=== PATIENT | female | born 2000 | race Caucasian/White ===

== ENCOUNTER 2025-01-07 21:03 | Observation (INO) ==
--- NOTE | 2025-01-07 23:43 | Emergency Department Note ---
Impression & Plan Seizure, Elevated serum glucose ED Provider Note NAME: YANCY SIN AGE: 24 SEX: F : 2000 ARRIVES VIA: Ambulance INFORMANT: Patient ED PROVIDER(S): Sreekanth Berumen DO CHIEF COMPLAINT: Seizure HPI: Patient is a 24-year-old female who presents ER for an episode where she became unresponsive and she had diffuse body shaking for about 20 minutes. She did lose control of her bowel or bladder. She does not remember what happened. She was not awake when this occurred. She currently feels very groggy. Denies any headache or change in vision. No chest pain or shortness of breath. No belly pain. She notes she is in the process of getting worked up for seizures. She does take Lamictal but is unsure of how much she takes. She currently over [facility]. ADDITIONAL HISTORY OBTAINED: Per HPI Chronic Medical/Social Conditions Affecting Care: Per HPI PAST MEDICAL HISTORY:See Below PAST SURGICAL HISTORY:See Below FAMILY HISTORY:See Below SOCIAL HISTORY:See Below HOME MEDICATIONS:See Below ALLERGIES:See Below VITALS:See Below PHYSICAL EXAMINATION: GENERAL: Sitting up in bed, alert, well appearing, well nourished, no distress, non-toxic EYE EXAM: normal conjunctiva. PERRL and EOM's intact. OROPHARYNX: no exudate, no erythema, lips, buccal mucosa, and tongue normal and mucous membranes are moist NECK: supple, no nuchal rigidity, no adenopathy, non-tender LUNGS: Clear to auscultation. Normal chest wall mechanics HEART: no murmurs, S1 normal and S2 normal ABDOMEN: abdomen soft, non-tender, normo-active bowel sounds, no masses, no rebound or guarding. BACK: Back is symmetrical on inspection and there is no deformity, no midline tenderness, no CVA tenderness. SKIN: no rashes and no bruising UPPER EXTREMITIES: upper extremities are grossly normal. LOWER EXTREMITIES: No pitting edema. NEURO EXAM: Normal sensorium, cranial nerves II-XII intact, normal speech, no weakness of arms, no weakness of legs. No drift. Finger to nose intact. Gross sensation intact. MEDICAL DECISION MAKING: Patient is a 24-year-old female who presents ER for the below stated complaint. IV was established and blood work was obtained. Labs show no significant leukocytosis or anemia. BMP along with LFTs bilirubin and troponin was negative. Lipase was normal. CT of the head was negative. Chest x-ray was without acute infiltrate. Patient was very groggy but she was given Ativan prior to arrival. It is difficult ascertain whether she truly has a history of epilepsy versus pseudoseizures. She is on Lamictal. Patient is unclear whether she has a true seizure disorder. She is currently at the [facility] on a 201. With her being at the [facility] Case was discussed with the hospitalist for further observation due to the 20-minute episodes/possible seizure. Consults/Care Managements Discussions: Per [facility] Triage Nursing notes reviewed. Limited review of prior medical records performed Vital Signs: reviewed and remarkable for no significant abnormalities Differential diagnosis: Differential diagnosis includes etiologies such as infection, hypoglycemia, electrolyte abnormalities, cardiac sources, intracerebral event, trauma, toxicologic, neurologic, as well as others were entertained. ER treatment provided: See below Diagnostics interpreted by me include EKG and cardiac monitoring as listed below: -Cardiac Monitoring: An order was placed for continuous cardiac monitoring. The monitor shows a rate of 90 with sinus rhythm. -ECG: Sinus rhythm rate 95 Normal axis No PVCs QTc 427 -Laboratory studies:Interpreted by me as stated above in MDM and shown below. Imaging studies: Xrays: As interpreted by me: Portable AP upright 1 view of the chest shows no focal infiltrate CTs show: none Procedures:none Critical Care: None Past Med/Surg History Problem List (Updated 01/08/25 @ 01:19 by Sreekanth Berumen DO) Elevated serum glucose (Acute) Seizure (Acute) Chest pain (Acute) Social History Smoking Status: Never smoker Preferred Language: Cambodian Feels Safe at Home: Yes Results & Data (ED) Vital Signs Vital Signs - 24 hr 01/07/25 21:12 01/07/25 21:12 01/07/25 21:12 Temperature 37.0 C Temperature Source Oral Pulse Rate 91 H Pulse Rate [Apical] Pulse Rate from SpO2 Sensor Pulse Rhythm Regular Pulse Rhythm [Apical] Pulse Strength Normal Pulse Strength [Apical] Respiratory Rate 19 19 Respiratory Effort / Characteristics Non-Labored Spontaneous Non-Labored Spontaneous Respiratory Depth Normal Normal Respiratory Pattern Regular Regular Blood Pressure 136/84 Blood Pressure [Left Arm] Blood Pressure Mean 101 Blood Pressure Mean [Left Arm] Blood Pressure Position Sitting Blood Pressure Position [Left Arm] Pulse Oximetry 96 96 Oxygen Delivery Method Room Air Room Air Sepsis Recent Fever Within 48 Hours No Sepsis New/Unexplained Change in Mental Status No Sepsis Action Taken by Nursing No Action Required 01/07/25 21:26 01/07/25 23:00 01/07/25 23:00 Temperature Temperature Source Pulse Rate 92 H 97 H Pulse Rate [Apical] 90 Pulse Rate from SpO2 Sensor 98 H Pulse Rhythm Pulse Rhythm [Apical] Regular Pulse Strength Pulse Strength [Apical] Normal Respiratory Rate 16 28 H Respiratory Effort / Characteristics Non-Labored Spontaneous Respiratory Depth Normal Respiratory Pattern Regular Blood Pressure Blood Pressure [Left Arm] 112/73 Blood Pressure Mean Blood Pressure Mean [Left Arm] 86 Blood Pressure Position Blood Pressure Position [Left Arm] Sitting Pulse Oximetry 95 95 Oxygen Delivery Method Room Air Room Air Sepsis Recent Fever Within 48 Hours Sepsis New/Unexplained Change in Mental Status Sepsis Action Taken by Nursing 01/07/25 23:05 01/08/25 00:06 01/08/25 00:20 Temperature Temperature Source Pulse Rate 97 H 90 Pulse Rate [Apical] Pulse Rate from SpO2 Sensor 90 Pulse Rhythm Regular Pulse Rhythm [Apical] Pulse Strength Pulse Strength [Apical] Respiratory Rate 16 24 Respiratory Effort / Characteristics Respiratory Depth Respiratory Pattern Blood Pressure 139/92 Blood Pressure [Left Arm] Blood Pressure Mean 119 Blood Pressure Mean [Left Arm] Blood Pressure Position Blood Pressure Position [Left Arm] Pulse Oximetry 94 96 Oxygen Delivery Method Room Air Room Air Sepsis Recent Fever Within 48 Hours Sepsis New/Unexplained Change in Mental Status Sepsis Action Taken by Nursing 01/08/25 00:21 Temperature Temperature Source Pulse Rate 79 Pulse Rate [Apical] Pulse Rate from SpO2 Sensor 81 Pulse Rhythm Pulse Rhythm [Apical] Pulse Strength Pulse Strength [Apical] Respiratory Rate 21 Respiratory Effort / Characteristics Respiratory Depth Respiratory Pattern Blood Pressure Blood Pressure [Left Arm] Blood Pressure Mean Blood Pressure Mean [Left Arm] Blood Pressure Position Blood Pressure Position [Left Arm] Pulse Oximetry 97 Oxygen Delivery Method Room Air Sepsis Recent Fever Within 48 Hours Sepsis New/Unexplained Change in Mental Status Sepsis Action Taken by Nursing Laboratory Data 01/07/25 21:15 01/07/25 21:15 Lab Results 01/07/25 Range/Units 21:15 WBC 10.24 (4.8-10.8) K/ul RBC 4.89 (4.20-5.40) M/uL Hgb 12.5 (12.0-16.0) g/dl Hct 38.6 (37.0-47.0) % MCV 78.9 L (80.0-100.0) fL MCH 25.6 (25.0-34.0) pg MCHC 32.4 (32.0-36.0) g/dL RDW Std Deviation 42.5 (36.4-46.3) fL RDW Coeff of Carmen 15.0 H (11.5-14.5) % Plt Count 318 (130-400) K/uL MPV 11.3 (9.4-12.4) fL Immature Gran % (Auto) 0.3 % Neut % (Auto) 66.0 % Lymph % (Auto) 25.9 % Humphreys % (Auto) 5.6 % Eos % (Auto) 1.8 % Baso % (Auto) 0.4 % Neut # (Auto) 6.77 H (1.40-6.50) K/uL Lymph # (Auto) 2.65 (1.20-3.40) K/uL Humphreys # (Auto) 0.57 (0.11-0.59) K/uL Eos # (Auto) 0.18 (0.00-0.50) K/uL Baso # (Auto) 0.04 (0.00-0.20) K/uL Immature Gran # (Auto) 0.03 (0.01-0.20) K/uL Sodium 138 (136-145) mmol/L Potassium 4.1 (3.5-5.1) mmol/L Chloride 106 (98-107) mmol/L Carbon Dioxide 23 (21-32) mmol/L Anion Gap 9 (3-11) BUN 19 (6-23) mg/dl Creatinine 1.04 (0.6-1.2) mg/dl Est Cr Clr Drug Dosing 97.1 ml/min eGFR 77.45 BUN/Creatinine Ratio 18.3 (10-20) Glucose 121 H (70-99(Fasting)) mg/dl Calcium 9.6 (8.6-10.3) mg/dl Total Bilirubin 0.2 (0.2-1.0) mg/dl AST 21 (13-39) U/L ALT 29 (7-52) U/L Alkaline Phosphatase 73 (34-104) U/L Troponin I High Sens < 2.3 (0-14) pg/ml Total Protein 7.7 (6.0-8.3) gm/dl Albumin 4.5 (3.4-5.0) gm/dl Globulin 3.2 (2.5-4.0) gm/dl Albumin/Globulin Ratio 1.4 (0.9-2) Lipase 27 (11-82) U/L Administered Medications Discontinued Medications Sodium Chloride (Nss) 1,000 mls @ 999 mls/hr IV .Q1H1M ONE Stop: 01/08/25 00:39 Last Admin: 01/08/25 00:37 Dose: 999 mls/hr Documented By: JASPER Imaging Data Radiologist's Impression: Head CT 01/07/25 23:39 EXAM: CT head/brain wo con CLINICAL HISTORY: seizure TECHNIQUE: Multiple axial images are obtained from the skull base to the vertex without contrast. CT scan was performed according to ALARA (as low as reasonable achievable). COMPARISON: None. FINDINGS: The brain shows normal morphology, attenuation, and volume for age. No evidence of space occupying lesion, hemorrhage, edema, mass effect, midline shift, extra axial collection, or hydrocephalus is noted. Ventricles, sulci, and basal cisterns are symmetric and normal in size and configuration. The artis-white matter differentiation is preserved. Visualized paranasal sinuses and mastoid air cells are well aerated. Orbital contents are within normal limits. Bony structures are intact. IMPRESSION: 1. No evidence of acute intracranial abnormality is demonstrated Electronically signed by Kaushal Leary 01-08-2025 12:54 AM Discharge Plan Visit Data Chief Complaint: Seizure ED Provider: Sreekanth Berumen Discharge Problem: Seizure, Elevated serum glucose Forms Stand Alone Forms: My [facility] Referrals Referrals: [facility] [Primary Care Provider] -
[2025-01-08 00:21] LABS: Basophils # (auto) 0.04 K/uL (0.00-0.20); Basophils % (auto) 0.4 %; Eosinophils # (auto) 0.18 K/uL (0.00-0.50); Eosinophils % (auto) 1.8 %; Hematocrit (blood only) 38.6 % (37.0-47.0); Hemoglobin 12.5 g/dl (12.0-16.0); Immature Granulocytes # (auto) 0.03 K/uL (0.01-0.20); Immature Granulocytes % (auto) 0.3 %; Lymphocytes # (auto) 2.65 K/uL (1.20-3.40); Lymphocytes % (auto) 25.9 %; Mean Corpuscular Hemoglobin 25.6 pg (25.0-34.0); Mean Corpuscular Hgb Conc 32.4 g/dL (32.0-36.0); Mean Corpuscular Volume 78.9 fL (80.0-100.0); Mean Platelet Volume 11.3 fL (9.4-12.4); Monocytes # (auto) 0.57 K/uL (0.11-0.59); Monocytes % (auto) 5.6 %; Neutrophils # (auto) 6.77 K/uL (1.40-6.50); Platelet Count 318 K/uL (130-400); RDW Standard Deviation 42.5 fL (36.4-46.3); Red Blood Count 4.89 M/uL (4.20-5.40); White Blood Count 10.24 K/ul (4.8-10.8)
[2025-01-08 00:32] LABS: Alanine Aminotransferase 29 U/L (7-52); Albumin Globulin Ratio 1.4 (0.9-2); Albumin Level 4.5 gm/dl (3.4-5.0); Alkaline Phosphatase 73 U/L (34-104); Anion Gap 9 (3-11); Aspartate Aminotransferase 21 U/L (13-39); BUN Creatinine Ratio 18.3 (10-20); Bilirubin,Total 0.2 mg/dl (0.2-1.0); Blood Urea Nitrogen 19 mg/dl (6-23); Calcium 9.6 mg/dl (8.6-10.3); Carbon Dioxide 23 mmol/L (21-32); Chloride 106 mmol/L (98-107); Creatinine Clr Calc Pharmacy 97.1 ml/min; Globulin 3.2 gm/dl (2.5-4.0); Glucose 121 mg/dl (70-99(Fasting)); Lipase 27 U/L (11-82); Potassium 4.1 mmol/L (3.5-5.1); Sodium 138 mmol/L (136-145); Total Protein 7.7 gm/dl (6.0-8.3)
[2025-01-08] MEDS: SODIUM CHLORIDE 0.9% 1,000 ML IV ONE (00:37)
[2025-01-08 00:38] LABS: Troponin I High Sensitivity < 2.3 pg/ml (0-14)
--- NOTE | 2025-01-08 00:55 | CT Scan Report ---
EXAM: CT head/brain wo con CLINICAL HISTORY: seizure TECHNIQUE: Multiple axial images are obtained from the skull base to the vertex without contrast. CT scan was performed according to ALARA (as low as reasonable achievable). COMPARISON: None. FINDINGS: The brain shows normal morphology, attenuation, and volume for age. No evidence of space occupying lesion, hemorrhage, edema, mass effect, midline shift, extra axial collection, or hydrocephalus is noted. Ventricles, sulci, and basal cisterns are symmetric and normal in size and configuration. The artis-white matter differentiation is preserved. Visualized paranasal sinuses and mastoid air cells are well aerated. Orbital contents are within normal limits. Bony structures are intact. IMPRESSION: 1. No evidence of acute intracranial abnormality is demonstrated Electronically signed by Kaushal Leary 01-08-2025 12:54 AM
--- NOTE | 2025-01-08 01:35 | XRay Report ---
Exam(s): XR CXR 1 VIEW EXAM: XR Chest, 1 View CLINICAL HISTORY: Reason for exam: Chest pain, nonspecific. TECHNIQUE: Frontal view of the chest. COMPARISON: Prior chest x-ray from January 06, 2025. FINDINGS: Lungs: Mild to moderate pleural thickening of the central rhonchi with increased interstitial opacities in the lower lobes. No consolidation. Pleural space: Unremarkable. No pneumothorax. Heart: Unremarkable. No cardiomegaly. Mediastinum: Unremarkable. Normal mediastinal contour. Bones/joints: Unremarkable. No acute fracture. IMPRESSION: Bronchitis, which may be of infectious or inflammatory etiologies. No consolidation or pleural effusion. Electronically signed by: Jil Gonsales MD 01/08/25 01:34 AM
--- NOTE | 2025-01-08 05:15 | History & Physical Report ---
Date of Service January 08, 2025 Assessment & Plan (1) Seizure: Plan: 24-year-old female with past medical history significant for asthma, morbid obesity, obstructive sleep apnea, not on CPAP, hypertension, seizures/pseudoseizures currently at [facility] because of depression and suicidal ideation was brought in because of seizure episode. Patient seem to have unresponsive episode with shaking of the body for about 20 minutes. As per the Er, She did lose control of bowel and bladder. Patient does not remember anything. She remembers waking up in the ER. She received IM Ativan 2 mg prior to coming to the ER. Currently somewhat drowsy. But arousable and answers questions. Currently denies any headache. No runny nose or sore throat. No cough. No fevers. Denies chest pain or shortness of breath. . Currently no nausea. No abdominal pain. Normal bowel and bladder movements. Patient states still has some thoughts of hurting herself. Seizure History of seizures/pseudoseizures Patient says she is on Lamictal 150 mg twice daily (needs to verify) Received IM Ativan 2 mg prior to come to the ER Seizure precautions Continue Lamictal IV Ativan as needed breakthrough seizures EEG Telemetry Neuroconsult in a.m. Morbid obesity Needs counseling Obstructive sleep apnea Currently not on CPAP Needs follow-up Suicidal ideation Depression Currently coming from [facility] One-on-one Psychiatry consult in a.m. Hypertension Possibly metoprolol succinate We will monitor Possible bronchitis on cxr will place on Rocephin and doxy for now. DVT prophylaxis Heparin subcu Disposition Telemetry Full code. History of Present Illness Chief Complaint: Seizure Primary Care Provider: Lorena [facility] 24-year-old female with past medical history significant for asthma, morbid obesity, obstructive sleep apnea, not on CPAP, hypertension, seizures/pseudoseizures currently at [facility] because of depression and suicidal ideation was brought in because of seizure episode. Patient seem to have unresponsive episode with shaking of the body for about 20 minutes. As per the Er, She did lose control of bowel and bladder. Patient does not remember anything. She remembers waking up in the ER. She received IM Ativan 2 mg prior to coming to the ER. Currently somewhat drowsy. But arousable and answers questions. Currently denies any headache. No runny nose or sore throat. No cough. No fevers. Denies chest pain or shortness of breath. . Currently no nausea. No abdominal pain. Normal bowel and bladder movements. Patient states still has some thoughts of hurting herself. Past medical history. As mentioned above Past surgical history. Denies any surgeries. Social history. Denies smoking. No alcohol use. No drug use. Family history. Significant for father had enlarged heart. Family history significant for heart disease CVA and hypertension. Allergies Allergy/AdvReac Type Severity Reaction Status Date / Time cephalexin Allergy Unknown Unknown Verified 01/08/25 02:42 iodine Allergy Unknown Unknown Verified 01/08/25 02:42 shellfish derived Allergy Unknown Unknown Verified 01/08/25 02:42 Home Medications Medication Instructions Recorded Confirmed Type Lamictal 150 mg PO BID 01/08/25 01/08/25 History Vitamin D3 1 dose PO QAM 01/08/25 01/08/25 History duloxetine 30 mg PO QAM 01/08/25 01/08/25 History hydroxyzine HCl 10 mg tablet 10 mg PO HS PRN Insomnia 01/08/25 01/08/25 History metoprolol succinate 25 mg 12.5 mg PO DAILY 01/08/25 01/08/25 History tablet,extended release 24 hr montelukast 10 mg tablet 10 mg PO HS 01/08/25 01/08/25 History (Singulair) Past Med/Surg History Problem List (Updated 01/08/25 @ 01:19 by Sreekanth Berumen DO) Elevated serum glucose (Acute) Seizure (Acute) Chest pain (Acute) Social History Smoking Status: Never smoker Preferred Language: Hebrew Feels Safe at Home: Yes Review of Systems Review of Systems: All systems reviewed & are unremarkable except as noted in HPI & below Physical Exam Physical Exam: General- Not in distress. Obese Head- atraumatic Eyes- PERRL. ENT- oropharynx clear Neck- supple, no JVD. Lungs- clear to auscultation no wheezing or crackles. Heart- regular rate and rhythm; no murmur, no gallop. Abdomen- normal bowel sounds, soft, nontender, no distension Extremities- no pretibial edema, no erythema seen Neuro- alert, oriented x 3; PERRL, no facial palsy; no dysarthria; moves extremities Results & Data Results & Data Vital Signs (Past 12 Hours) Vital Signs Temp Pulse Pulse Resp BP BP Pulse Ox 01/08/25 04:36 90 27 H 96 01/08/25 04:06 94 H 23 96 01/08/25 04:01 85/63 L 01/08/25 03:30 93 H 24 96 01/08/25 03:03 94 H 24 96 01/08/25 03:01 91/53 L 01/08/25 02:21 97 H 27 H 95 01/08/25 02:12 90 28 H 95 01/08/25 02:00 115/80 01/08/25 01:36 91 H 01/08/25 01:30 93 H 21 96 01/08/25 01:00 85 21 97/61 L 97 01/08/25 00:21 79 21 97 01/08/25 00:20 139/92 01/08/25 00:06 90 24 96 01/07/25 23:05 97 H 16 94 01/07/25 23:00 97 H 28 H 95 01/07/25 23:00 90 16 112/73 95 01/07/25 21:26 92 H 01/07/25 21:12 19 01/07/25 21:12 96 01/07/25 21:12 37.0 C 91 H 19 136/84 96 O2 Del Method 01/08/25 04:36 Room Air 01/08/25 04:06 Room Air 01/08/25 04:01 01/08/25 03:30 Room Air 01/08/25 03:03 Room Air 01/08/25 03:01 01/08/25 02:21 01/08/25 02:12 01/08/25 02:00 01/08/25 01:36 01/08/25 01:30 01/08/25 01:00 Room Air 01/08/25 00:21 Room Air 01/08/25 00:20 01/08/25 00:06 Room Air 01/07/25 23:05 Room Air 01/07/25 23:00 Room Air 01/07/25 23:00 Room Air 01/07/25 21:26 01/07/25 21:12 01/07/25 21:12 Room Air 01/07/25 21:12 Room Air Diagnostic Findings Laboratory Results WBC 10.24 K/ul (4.8-10.8) 01/07/25 21:15 RBC 4.89 M/uL (4.20-5.40) 01/07/25 21:15 Hgb 12.5 g/dl (12.0-16.0) 01/07/25 21:15 Hct 38.6 % (37.0-47.0) 01/07/25 21:15 MCV 78.9 fL (80.0-100.0) L 01/07/25 21:15 MCH 25.6 pg (25.0-34.0) 01/07/25 21:15 MCHC 32.4 g/dL (32.0-36.0) 01/07/25 21:15 RDW Std Deviation 42.5 fL (36.4-46.3) 01/07/25:15 RDW Coeff of Carmen 15.0 % (11.5-14.5) H 01/07/25 21:15 Plt Count 318 K/uL (130-400) 01/07/25 21:15 MPV 11.3 fL (9.4-12.4) 01/07/25 21:15 Immature Gran % (Auto) 0.3 % 01/07/25 21:15 Neut % (Auto) 66.0 % 01/07/25 21:15 Lymph % (Auto) 25.9 % 01/07/25 21:15 Meade % (Auto) 5.6 % 01/07/25 21:15 Eos % (Auto) 1.8 % 01/07/25 21:15 Baso % (Auto) 0.4 % 01/07/25:15 Neut # (Auto) 6.77 K/uL (1.40-6.50) H 01/07/25 21:15 Lymph # (Auto) 2.65 K/uL (1.20-3.40) 01/07/25 21:15 Meade # (Auto) 0.57 K/uL (0.11-0.59) 01/07/25 21:15 Eos # (Auto) 0.18 K/uL (0.00-0.50) 01/07/25 21:15 Baso # (Auto) 0.04 K/uL (0.00-0.20) 01/07/25 21:15 Immature Gran # (Auto) 0.03 K/uL (0.01-0.20) 01/07/25 21:15 Sodium 138 mmol/L (136-145) 01/07/25 21:15 Potassium 4.1 mmol/L (3.5-5.1) 01/07/25 21:15 Chloride 106 mmol/L (98-107) 01/07/25 21:15 Carbon Dioxide 23 mmol/L (21-32) 01/07/25 21:15 Anion Gap 9 (3-11) 01/07/25 21:15 BUN 19 mg/dl (6-23) 01/07/25 21:15 Creatinine 1.04 mg/dl (0.6-1.2) 01/07/25 21:15 Est Cr Clr Drug Dosing 97.1 ml/min 01/07/25 21:15 eGFR 77.45 01/07/25 21:15 BUN/Creatinine Ratio 18.3 (10-20) 01/07/25 21:15 Glucose 121 mg/dl (70-99(Fasting)) H 01/07/25 21:15 Calcium 9.6 mg/dl (8.6-10.3) 01/07/25 21:15 Total Bilirubin 0.2 mg/dl (0.2-1.0) 01/07/25 21:15 AST 21 U/L (13-39) 01/07/25 21:15 ALT 29 U/L (7-52) 01/07/25 21:15 Alkaline Phosphatase 73 U/L (34-104) 01/07/25 21:15 Troponin I High Sens < 2.3 pg/ml (0-14) 01/07/25 21:15 Total Protein 7.7 gm/dl (6.0-8.3) 01/07/25 21:15 Albumin 4.5 gm/dl (3.4-5.0) 01/07/25 21:15 Globulin 3.2 gm/dl (2.5-4.0) 01/07/25 21:15 Albumin/Globulin Ratio 1.4 (0.9-2) 01/07/25 21:15 Lipase 27 U/L (11-82) 01/07/25 21:15 Impressions Chest X-Ray 01/07/25 23:04 Exam(s): XR CXR 1 VIEW EXAM: XR Chest, 1 View CLINICAL HISTORY: Reason for exam: Chest pain, nonspecific. TECHNIQUE: Frontal view of the chest. COMPARISON: Prior chest x-ray from January 06, 2025. FINDINGS: Lungs: Mild to moderate pleural thickening of the central rhonchi with increased interstitial opacities in the lower lobes. No consolidation. Pleural space: Unremarkable. No pneumothorax. Heart: Unremarkable. No cardiomegaly. Mediastinum: Unremarkable. Normal mediastinal contour. Bones/joints: Unremarkable. No acute fracture. IMPRESSION: Bronchitis, which may be of infectious or inflammatory etiologies. No consolidation or pleural effusion. Electronically signed by: Jil Gonsales MD 01/08/25 01:[address] 01/07/25 23:39 EXAM: CT head/brain wo con CLINICAL HISTORY: seizure TECHNIQUE: Multiple axial images are obtained from the skull base to the vertex without contrast. CT scan was performed according to ALARA (as low as reasonable achievable). COMPARISON: None. FINDINGS: The brain shows normal morphology, attenuation, and volume for age. No evidence of space occupying lesion, hemorrhage, edema, mass effect, midline shift, extra axial collection, or hydrocephalus is noted. Ventricles, sulci, and basal cisterns are symmetric and normal in size and configuration. The artis-white matter differentiation is preserved. Visualized paranasal sinuses and mastoid air cells are well aerated. Orbital contents are within normal limits. Bony structures are intact. IMPRESSION: 1. No evidence of acute intracranial abnormality is demonstrated Electronically signed by Kaushal Leary 01-08-2025 12:54 AM ECG Additional Comments: ECG. Normal sinus rhythm rate 95. No significant change was found. Code Status & VTE Plan VTE Prophylaxis Plan VTE Prophylaxis will be ordered: Yes
[2025-01-08] MEDS ORDERED: NITROGLYCERIN SL 0.4 MG/TAB TAB SL PRN (05:34)
[2025-01-08] MEDS ORDERED: LORazepam 2 MG/1 ML VIAL IV PRN (05:34)
[2025-01-08] MEDS: SODIUM CHLORIDE 0.9% 1,000 ML IV SCH (05:59)
--- NOTE | 2025-01-08 07:07 | Electrocardiogram Report ---
Test Reason : Blood Pressure : */* mmHG Vent. Rate : 95 BPM Atrial Rate : 95 BPM P-R Int : 138 ms QRS Dur : 76 ms QT Int : 340 ms P-R-T Axes : 55 21 7 degrees QTcB Int : 427 ms Normal sinus rhythm Normal ECG When compared with ECG of 06-Jan-2025 15:05, No significant change was found Confirmed by Mikhail Glez ([id number]) on 01/08/2025 7:06:49 AM Referred By: Lorena Mckoy Confirmed By: Mikhail Glze
[2025-01-08 08:00] LABS: Basophils # (auto) 0.02 K/uL (0.00-0.20); Basophils % (auto) 0.2 %; Eosinophils # (auto) 0.15 K/uL (0.00-0.50); Eosinophils % (auto) 1.7 %; Hematocrit (blood only) 35.9 % (37.0-47.0); Hemoglobin 11.4 g/dl (12.0-16.0); Immature Granulocytes # (auto) 0.02 K/uL (0.01-0.20); Immature Granulocytes % (auto) 0.2 %; Lymphocytes # (auto) 2.22 K/uL (1.20-3.40); Lymphocytes % (auto) 25.1 %; Mean Corpuscular Hemoglobin 25.4 pg (25.0-34.0); Mean Corpuscular Hgb Conc 31.8 g/dL (32.0-36.0); Mean Corpuscular Volume 80.1 fL (80.0-100.0); Monocytes # (auto) 0.51 K/uL (0.11-0.59); Monocytes % (auto) 5.8 %; Neutrophils # (auto) 5.91 K/uL (1.40-6.50); Platelet Count 263 K/uL (130-400); RDW Coefficient of Variation 14.9 % (11.5-14.5); RDW Standard Deviation 43.1 fL (36.4-46.3); Red Blood Count 4.48 M/uL (4.20-5.40); White Blood Count 8.83 K/ul (4.8-10.8)
[2025-01-08 08:13] LABS: Calcium 8.9 mg/dl (8.6-10.3); Creatinine Clr Calc Pharmacy 120.2 ml/min; Magnesium 1.9 mg/dl (1.7-2.4); Potassium 4.1 mmol/L (3.5-5.1)
[2025-01-08] MEDS: METOPROLOL SUCC 25MG EXT REL TAB PO SCH (08:39)
[2025-01-08] MEDS: lamoTRIgine 100 MG TAB PO SCH (08:40)
[2025-01-08] MEDS: hydrOXYzine HCl 10 MG TAB PO PRN (08:41)
[2025-01-08] MEDS: DULoxetine HCL 30 MG CAP PO SCH (08:41)
[2025-01-08] MEDS: HEPARIN SOD 5,000 UNIT/0.5 ML VIAL SQ SCH (08:45)
[2025-01-08] MEDS: DOXYCYCLINE HYCLATE 100 MG CAP PO ONE (08:47)
[2025-01-08] MEDS ORDERED: DOXYCYCLINE HYCLATE 100 MG CAP PO SCH (09:00)
[2025-01-08] MEDS: AZITHROMYCIN 250 MG TAB PO ONE (10:18)
--- NOTE | 2025-01-08 13:09 | Psychiatric Consultation ---
Date of Consultation January 08, 2025 Impression / Recommendations Impression History is consistent with mood disorder unspecified (r/o MDD vs Bipolar Disorder) with history of chronic suicidal ideation suggesting Cluster B personality traits (r/o Borderline personality disorder). Currently, low risk of self harm given denial of suicidal intent or plan, denial of prior suicide attempts, active seeking of and engagement with treatment, expressing desire to return to an inpatient unit and absence of access to means. Family history of suicide does constitute an ongoing risk factor as does current stressor of being homeless. Pt will be discharged to a safe, structured environment. By history Bipolar Disorder. By history Dissociative Identity Disorder By history, Depression. By history, Anxiety unspecified. r/o PTSD. (1) Unspecified episodic mood disorder: (2) Dissociative identity disorder: (3) Borderline personality disorder: Plan May be discharged to the [facility] for continued psychiatric treatment once medically cleared. Continue plan of care at that facility. Overall I spent a total of 75 minutes for this admission including review of chart records, review of lab work, direct evaluation of the patient, counseling the patient, risk assessment, discussion with the psychiatric liaison RN and documentation in the electronic health record. Psych History Identifying Data 24-year-old female with past medical history significant for asthma, morbid obesity, obstructive sleep apnea, not on CPAP, hypertension, seizures/pseudoseizures currently at [facility] because of depression and chronic suicidal ideation. She was transferred to [facility] from [facility] inpatient psychiatric unit on account of a seizure episode, characterized by unresponsiveness, shaking of the body for about 20 minutes, bowel and bladder incontinence. Chief Complaint "I want to go back to [facility]". History of Present Illness Background History: She is a 24 year old female with self reported psychiatric diagnoses of multiple personality, bipolar, anxiety and chronic suicidal ideation. She was admitted to [facility] 12[facility] with suicidal ideation following a series of arguments with her roommate. She has had unstable housing for the past 2.5 months, having been in penitentiary for much of that time. HPI: The patient reports a long-standing history of suicidal ideation, which varies in intensity depending on stressors. They describe the worst episodes as reaching a 8/10 in severity, often triggered by arguments with their roommate or thoughts about their ex-. Currently, the patient rates their suicidal thoughts at a 4/10, expressing a sense of uncertainty and fear. Despite the chronic nature of these thoughts, the patient denies ever attempting suicide or conducting research on self-harm methods, apart from one instance in the past. The patient's suicidal ideation appears to be managed through inpatient psychiatric admissions, with at least four hospitalizations throughout their lifetime, including recent stays at [facility].At this time, she denied suicidal intent or plan and would like to return to the [facility]. Psychiatric History: The patient has a complex psychiatric history, with diagnoses including multiple personality disorder, depression, anxiety since childhood, PTSD, and bipolar disorder. They have undergone regular therapy but have not received specialized treatments like Dialectical Behavior Therapy (DBT). The patient's mental health treatment has primarily been provided by the [facility] in [facility]. Substance Use History: - Alcohol: Avoids due to having only one kidney - Marijuana: Never used - Other drugs: Denies use Developmental History: The patient was born in [place] and has a history of instability in their living situation. Past Medical History: The patient was born with a single kidney and has a history of cerebral palsy, ADHD, ADD, and PCOS. They underwent an appendectomy at age 14. The patient also experiences seizures, for which they take Klonopin, but the nature of these seizures is unclear pending results from a recent outpatient EEG. Family History: There is a family history of depression and bipolar disorder. The patient's father by suicide when the patient was three months old, suggesting a potential genetic predisposition to suicidal thoughts. Social History: The patient is currently unsheltered, most recently lived in a homeless penitentiary in [facility]. They have experienced housing instability, having recently been kicked out of a family member's home after a two-week stay. The patient's relationship with their family is strained, with limited contact only with their sister.She denied access to firearms. Allergies Allergy/AdvReac Type Severity Reaction Status Date / Time cephalexin Allergy Unknown Unknown Verified 01/08/25 02:42 iodine Allergy Unknown Unknown Verified 01/08/25 02:42 shellfish derived Allergy Unknown Unknown Verified 01/08/25 02:42 Home Medications Medication Instructions Recorded Confirmed Type Lamictal 150 mg PO BID 01/08/25 01/08/25 History Vitamin D3 1 dose PO QAM 01/08/25 01/08/25 History duloxetine 30 mg PO QAM 01/08/25 01/08/25 History hydroxyzine HCl 10 mg tablet 10 mg PO HS PRN Insomnia 01/08/25 01/08/25 History metoprolol succinate 25 mg 12.5 mg PO DAILY 01/08/25 01/08/25 History tablet,extended release 24 hr montelukast 10 mg tablet 10 mg PO HS 01/08/25 01/08/25 History ([place]) Patient History Social History Smoking Status: Never smoker Preferred Language: Icelandic Feels Safe at Home: Yes Physical Exam Psychiatric: A+Ox3, euthymic affect Orientation: alert and oriented x 3 Apperance: appropriately dressed, + disheveled and appeared stated age Eye Contact: good eye contact Motor Behavior: no abnormal motor movements Speech: normal rate/rhythm/volume of speech Affect: euthymic affect and mood congruent with affect Mood: + anxious mood Thought Process: goal directed thought process, linear/logical thought process and clear/coherent thought process Thought Content: + preoccupation Wants to go back to the [facility] partly because her belongings are there. Suicidal Thoughts: denies suicidal plan and denies suicidal intent Chronic suicidal ideation without intent or plan. Homicidal Thoughts: denies homicidal thoughts, denies homicidal plan and denies homicidal intent None elicited Cognition: recent memory grossly intact, remote memory grossly intact, attention grossly intact and language grossly intact Estimated Intelligence: + below average estimated intelligence Insight: good insight Judgment: + limited judgement Vital Signs (Past 24 Hours): Last Vital Signs Temp 37.0 C 01/07/25 21:12 Pulse 87 01/08/25 09:39 Resp 20 01/08/25 09:39 BP 118/78 01/08/25 09:39 Pulse Ox 97 01/08/25 09:39 O2 Del Method Room Air 01/08/25 09:39 Results & Data (PSY) Medications Administered Duloxetine HCl (Duloxetine Hcl 30 Mg Cap) 30 mg PO DAILY MARNIE Stop: 02/07/25 08:59 Last Admin: 01/08/25 08:41 Dose: 30 mg Documented By: CAMILLE Heparin Sodium (Porcine) (Heparin Sod 5,000 Unit/0.5 Ml Vial) 7,500 units SQ Q12 MARNIE Stop: 02/07/25 08:59 Last Admin: 01/08/25 08:45 Dose: Not Given Documented By: CAMILLE Hydroxyzine HCl (Hydroxyzine Hcl 10 Mg Tab) 10 mg PO HS PRN PRN Reason: Insomnia Stop: 02/07/25 05:33 Last Admin: 01/08/25 08:41 Dose: 10 mg Documented By: CAMILLE Sodium Chloride (Nss) 1,000 mls @ 100 mls/hr IV .Q10H MARNIE Stop: 01/09/25 05:33 Last Admin: 01/08/25 05:59 Dose: 100 mls/hr Documented By: SHARIF Lamotrigine (Lamotrigine 100 Mg Tab) 150 mg PO BID [facility] Stop: 02/07/25 08:59 Last Admin: 01/08/25 08:40 Dose: 150 mg Documented By: CAMILLE Metoprolol Succinate (Metoprolol Succ 25mg Ext Rel Tab) 12.5 mg PO DAILY [facility] Stop: 02/07/25 08:59 Last Admin: 01/08/25 08:39 Dose: 12.5 mg Documented By: CAMILLE [place] [address] IN/OBS CONSULT LVL 5,80M Patient Type New History Problem Focused Exam Problem Focused Medical Decision Making Moderate Complexity Diagnoses Unspecified episodic mood disorder F39 Dissociative identity disorder F44.81 Borderline personality disorder F60.3 Time Spent (min) 75
--- NOTE | 2025-01-08 13:40 | Neurology Consultation ---
Date of Consultation January 08, 2025 Assessment & Plan (1) Convulsion, non-epileptic: Apparently the patient has a long history of nonepileptic seizures, maintained on Lamictal 150 mg twice daily. Recently restarted. Plan Continue with the current dose of Lamictal 150 twice daily, ensure compliance. Okay to continue with Cymbalta. Psychiatry evaluation ongoing, psychotherapy The patient reports she had an EEG as an outpatient but does not know the result s, and EEG with also be helpful to rule out any epileptogenic potential. Will follow with you. Telehealth Consultation Telehealth Information Telehealth Information: I performed this visit using a real-time telehealth connection between my location and the patients location ([facility]). After connecting through interactive tele-video, patient was identified by name and date of and/or wristband check.Patient (or authorized healthcare payroll representative) was informed that this was a telemedicine visit and it was being conducted confidentially over secure lines. My office door was closed and no one else was present in the room with me.Patient (or authorized healthcare payroll representative) provided consent to proceed with the visit, expressed an understanding of privacy and security of the telemedicine visit, and gave permission to have a hospital payroll representative in the room in order to assist with the visit and to conduct portions of the visit, as needed. I informed the patient (or authorized healthcare payroll representative) that I reviewed their record and presented the opportunity for them to ask any questions regarding the visit today. The patient agreed to participate. History of Present Illness Reason for Consultation: Seizure vs psudoseizure Requesting Physician: Chip Alfonso MD Attending Physician: Chip Alfonso MD History of Present Illness 24-year-old female patient with an extensive psychiatric history with persona lity disorder bipolar disorder, morbid obesity, obstructive sleep apnea, seizures and pseudoseizures, placed on lamictal 50 mg who presents from the [facility] (where she was admitted for suicidal ideations and depression) with episodes of unresponsiveness. The patient was in [facility] prior to this presentation. And has not been taking her Lamictal, was taking Cymbalta 30 mg daily. Yesterday she had an unresponsive episode with shaking of the body for about 20 minutes per description. The patient herself does not remember how long that she shake or how but feels like her legs are sore. She still has some suicidal ideations. Has been taking her Lamictal for the past 2 weeks, however she did not have access to her medications prior to her recent admission to the [facility]. She currently has no vision changes no numbness or weakness no other focal neurological deficits and was able to get up and walk. Allergies Allergy/AdvReac Type Severity Reaction Status Date / Time cephalexin Allergy Unknown Unknown Verified 01/08/25 02:42 iodine Allergy Unknown Unknown Verified 01/08/25 02:42 shellfish derived Allergy Unknown Unknown Verified 01/08/25 02:42 Home Medications Medication Instructions Recorded Confirmed Type Lamictal 150 mg PO BID 01/08/25 01/08/25 History Vitamin D3 1 dose PO QAM 01/08/25 01/08/25 History duloxetine 30 mg PO QAM 01/08/25 01/08/25 History hydroxyzine HCl 10 mg tablet 10 mg PO HS PRN Insomnia 01/08/25 01/08/25 History metoprolol succinate 25 mg 12.5 mg PO DAILY 01/08/25 01/08/25 History tablet,extended release 24 hr montelukast 10 mg tablet 10 mg PO HS 01/08/25 01/08/25 History (Singulair) Patient History Social History Smoking Status: Never smoker Preferred Language: Divehi Feels Safe at Home: Yes Review of Systems runny , cold blisters , cough .Constitutional: Patient denies weight loss, fever, chills, and night sweats Eyes: Patient denies change in vision, tearing, pain, and redness ENT: Patient denies pain, bleeding,++ rhinorrhea, and dysphagia Cardiovascular: Patient denies chest pain, palpitation, dyspnea at rest, and dyspnea with exertion Respiratory: +++ shortness of breath, +++cough, wheezing, and productive cough GI: Patient denies reflux, pain, constipation, and diarrhea Skin: Patient denies rash, dryness, and itching Allergies/Immune System: Patient denies rhinorrhea, seasonal allergies, reaction to current MEDS, and joint swelling Endocrine: Patient denies weight loss, weight gain, temperature intolerance, and excessive thirst Neurological: All negative unless mentioned in the HPI Physical Exam General Constitutional: Appearance normally developed, Morbidly obese Head and face: normocephalic and atraumatic Eyes: no ptosis, no anisocoria, and no dysconjugate gaze Respiratory: normal effort Cardiovascular: regular rhythm and regular rate Abdomen: non distended Skin: no rashes, lesions, or ulcers noted Psychiatric: normal judgement and insight, normal mood, and normal affect NEUROLOGIC EXAMINATION: Mental Status:alert, oriented to time, place, person, normal recent memory, normal remote memory, normal attention span, normal concentration, normal language and normal fund of knowledge Cranial Nerves: CN 2 - no visual defect on confrontation and pupils round, equal, reactive to light CN 3, 4, 6 - extra-ocular movements intact and no nystagmus CN 5 - facial sensation intact CN 7 - no facial asymmetry CN 8 - intact hearing CN 9, 10 - palate symmetric, normal gag CN 11 - good shoulder shrug CN 12 - tongue midline MOTOR: Strength was at least antigravity throughout, Pronator drift was absent and There were no abnormal movements SENSATION: intact and symmetric to pinprick, light touch, vibration and joint position GAIT: stable, no ataxia and can perform tandem walking COORDINATION: no ataxia with finger to nose testing and heel to bautista testing REFLEXES: cannot assess over telemedicine Results & Data Vital Signs (Past 12 Hours) Vital Signs Pulse Pulse Resp BP BP Pulse Ox Pulse Ox 01/08/25 09:39 87 20 118/78 97 01/08/25 07:01 85 01/08/25 06:00 81 18 115/92 96 01/08/25 06:00 97 01/08/25 05:00 90 24 97 01/08/25 04:36 90 27 H 96 01/08/25 04:06 94 H 23 96 01/08/25 04:01 85/63 L 01/08/25 03:30 93 H 24 96 01/08/25 03:03 94 H 24 96 01/08/25 03:01 91/53 L 01/08/25 02:21 97 H 27 H 95 01/08/25 02:12 90 28 H 95 01/08/25 02:00 115/80 01/08/25 01:36 91 H O2 Del Method O2 Del Method 01/08/25 09:39 Room Air 01/08/25 07:01 01/08/25 06:00 Room Air 01/08/25 06:00 Room Air 01/08/25 05:00 Room Air 01/08/25 04:36 Room Air 01/08/25 04:06 Room Air 01/08/25 04:01 01/08/25 03:30 Room Air 01/08/25 03:03 Room Air 01/08/25 03:01 01/08/25 02:21 01/08/25 02:12 01/08/25 02:00 01/08/25 01:36 Laboratory Results Laboratory Results - last 24 hr 01/07/25 01/08/25 21:15 07:22 WBC 10.24 8.83 RBC 4.89 4.48 Hgb 12.5 11.4 L Hct 38.6 35.9 L MCV 78.9 L 80.1 MCH 25.6 25.4 MCHC 32.4 31.8 L RDW Std Deviation 42.5 43.1 RDW Coeff of Carmen 15.0 H 14.9 H Plt Count 318 263 MPV 11.3 11.0 Immature Gran % (Auto) 0.3 0.2 Neut % (Auto) 66.0 67.0 Lymph % (Auto) 25.9 25.1 [place] % (Auto) 5.6 5.8 Eos % (Auto) 1.8 1.7 Baso % (Auto) 0.4 0.2 Neut # (Auto) 6.77 H 5.91 Lymph # (Auto) 2.65 2.22 [place] # (Auto) 0.57 0.51 Eos # (Auto) 0.18 0.15 Baso # (Auto) 0.04 0.02 Immature Gran # (Auto) 0.03 0.02 Sodium 138 140 Potassium 4.1 4.1 Chloride 106 107 Carbon Dioxide 23 26 Anion Gap 9 7 BUN 19 16 Creatinine 1.04 0.84 Est Cr Clr Drug Dosing 97.1 120.2 eGFR 77.45 100.08 BUN/Creatinine Ratio 18.3 19.0 Glucose 121 H 84 Calcium 9.6 8.9 Magnesium 1.9 Total Bilirubin 0.2 AST 21 ALT 29 Alkaline Phosphatase 73 Troponin I High Sens < 2.3 Total Protein 7.7 Albumin 4.5 Globulin 3.2 Albumin/Globulin Ratio 1.4 Lipase 27 Diagnostic Findings Chest X-Ray 01/07/25 23:04 Exam(s): XR CXR 1 VIEW EXAM: XR Chest, 1 View CLINICAL HISTORY: Reason for exam: Chest pain, nonspecific. TECHNIQUE: Frontal view of the chest. COMPARISON: Prior chest x-ray from January 06, 2025. FINDINGS: Lungs: Mild to moderate pleural thickening of the central rhonchi with increased interstitial opacities in the lower lobes. No consolidation. Pleural space: Unremarkable. No pneumothorax. Heart: Unremarkable. No cardiomegaly. Mediastinum: Unremarkable. Normal mediastinal contour. Bones/joints: Unremarkable. No acute fracture. IMPRESSION: Bronchitis, which may be of infectious or inflammatory etiologies. No consolidation or pleural effusion. Electronically signed by: Jil Gonsales MD 01/08/25 01:[address] 01/07/25 23:39 EXAM: CT head/brain wo con CLINICAL HISTORY: seizure TECHNIQUE: Multiple axial images are obtained from the skull base to the vertex without contrast. CT scan was performed according to ALARA (as low as reasonable achievable). COMPARISON: None. FINDINGS: The brain shows normal morphology, attenuation, and volume for age. No evidence of space occupying lesion, hemorrhage, edema, mass effect, midline shift, extra axial collection, or hydrocephalus is noted. Ventricles, sulci, and basal cisterns are symmetric and normal in size and configuration. The artis-white matter differentiation is preserved. Visualized paranasal sinuses and mastoid air cells are well aerated. Orbital contents are within normal limits. Bony structures are intact. IMPRESSION: 1. No evidence of acute intracranial abnormality is demonstrated Electronically signed by Kaushal Leary 01-08-2025 12:54 AM Medications Administered Home Medications Medication Instructions Recorded Confirmed Last Taken Lamictal 150 mg PO BID 01/08/25 01/08/25 Unknown Vitamin D3 1 dose PO QAM 01/08/25 01/08/25 Unknown duloxetine 30 mg PO QAM 01/08/25 01/08/25 Unknown hydroxyzine HCl 10 mg tablet 10 mg PO HS PRN Insomnia 01/08/25 01/08/25 Unknown metoprolol succinate 25 mg 12.5 mg PO DAILY 01/08/25 01/08/25 Unknown tablet,extended release 24 hr montelukast 10 mg tablet 10 mg PO HS 01/08/25 01/08/25 Unknown (Singulair) Active Medications Generic Name Dose Route Start Last Admin Trade Name Freq PRN Reason Stop Dose Admin Duloxetine HCl 30 mg 01/08/25 09:00 01/08/25 08:41 Duloxetine Hcl 30 Mg Cap PO 02/07/25 08:59 30 mg DAILY MARNIE Administration Heparin Sodium (Porcine) 7,500 units 01/08/25 09:00 01/08/25 08:45 Heparin Sod 5,000 Unit/0.5 Ml Vial SQ 02/07/25 08:59 Not Given Q12 MARNIE Hydroxyzine HCl 10 mg 01/08/25 05:34 01/08/25 08:41 Hydroxyzine Hcl 10 Mg Tab PO 02/07/25 05:33 10 mg HS PRN Administration Insomnia Sodium Chloride 1,000 mls @ 100 mls/hr 01/08/25 05:34 01/08/25 05:59 Nss IV 01/09/25 05:33 100 mls/hr .Q10H MARNIE Administration Lamotrigine 150 mg 01/08/25 09:00 01/08/25 08:40 Lamotrigine 100 Mg Tab PO 02/07/25 08:59 150 mg BID MARNIE Administration Metoprolol Succinate 12.5 mg 01/08/25 09:00 01/08/25 08:39 Metoprolol Succ 25mg Ext Rel Tab PO 02/07/25 08:59 12.5 mg DAILY MARNIE Administration
[2025-01-08] MEDS: MONTELUKAST SODIUM 10 MG TABLET PO SCH (21:43)
[2025-01-09] MEDS: AZITHROMYCIN 250 MG TAB PO SCH (08:08)
[2025-01-09] MEDS: ACETAMINOPHEN 325 MG TAB PO PRN (11:18)
--- NOTE | 2025-01-09 12:51 | Hospitalist Progress Note ---
Date of Service January 09, 2025 Assessment & Plan (1) Seizure: Plan: 24-year-old female with past medical history significant for asthma, morbid obesity, obstructive sleep apnea, not on CPAP, hypertension, seizures/pseudoseizures currently at [facility] because of depression and suicidal ideation was brought in because of seizure episode. Convulsion, non-epileptic: History of nonepileptic seizure; maintained on Lamictal 150 mg twice a day; was brought to the hospital for unresponsive episode. No bowel or bladder incontinence. No postictal confusion Evaluated by psychiatry and neurology; recommend to continue current medication Patient medically stable for discharge Morbid obesity Needs counseling Obstructive sleep apnea Currently not on CPAP Needs follow-up Suicidal ideation Depression Continue home meds Continue one-to-one, safety tray Hypertension Continue on metoprolol succinate DVT prophylaxis Heparin subcu Disposition Telemetry Full code. Please note the above document was generated using voice recognition software. It may contain grammatical, syntax or spelling errors. Any formal questions or concerns about the content, text or information contained within the body of this dictation should be directly addressed to the provider for clarification Admission and Anticipated Discharge Date Admission Date: January 08, 2025 Subjective Patient seen and examined at bedside. She is alert oriented x 3; not in distress No episode of seizure overnight No significant events overnight Review of Systems Review of Systems: All systems reviewed & are unremarkable except as noted in Subjective Physical Exam Physical Exam: General- Not in distress. Head- atraumatic Eyes- PERRL. ENT- oropharynx clear Neck- supple, no JVD. Lungs- clear to auscultation no wheezing or crackles. Heart- regular rate and rhythm; no murmur, no gallop. Abdomen- normal bowel sounds, soft, nontender, no distension Extremities- no pretibial edema, no erythema seen Neuro- alert, oriented x 3; PERRL, no facial palsy; no dysarthria; moves extremities Results & Data Results & Data Vital Signs (Past 12 Hours) Vital Signs Temp Pulse Pulse Pulse Resp BP Pulse Ox 01/09/25 11:19 36.5 C 87 18 131/83 97 01/09/25 09:08 89 01/09/25 09:05 01/09/25 09:00 36.8 C 94 H 18 126/76 100 01/09/25 07:32 75 16 107/76 98 01/09/25 04:16 79 17 137/92 98 01/09/25 02:00 81 20 95 O2 Del Method 01/09/25 11:19 Room Air 01/09/25 09:08 01/09/25 09:05 Room Air 01/09/25 09:00 Room Air 01/09/25 07:32 Room Air 01/09/25 04:16 Room Air 01/09/25 02:00 Room Air
--- NOTE | 2025-01-09 16:24 | Discharge Summary ---
Date of Service January 09, 2025 Admission HPI Per Admitting Provider 24-year-old female with past medical history significant for asthma, morbid obesity, obstructive sleep apnea, not on CPAP, hypertension, seizures/pseudoseizures currently at [facility] because of depression and suicidal ideation was brought in because of seizure episode. Patient seem to have unresponsive episode with shaking of the body for about 20 minutes. As per the Er, She did lose control of bowel and bladder. Patient does not remember anything. She remembers waking up in the ER. She received IM Ativan 2 mg prior to coming to the ER. Currently somewhat drowsy. But arousable and answers questions. Currently denies any headache. No runny nose or sore throat. No cough. No fevers. Denies chest pain or shortness of breath. . Currently no nausea. No abdominal pain. Normal bowel and bladder movements. Patient states still has some thoughts of hurting herself. Past medical history. As mentioned above Past surgical history. Denies any surgeries. Social history. Denies smoking. No alcohol use. No drug use. Family history. Significant for father had enlarged heart. Family history significant for heart disease CVA and hypertension. Admission Exam Per Admitting Provider General- Not in distress. Obese Head- atraumatic Eyes- PERRL. ENT- oropharynx clear Neck- supple, no JVD. Lungs- clear to auscultation no wheezing or crackles. Heart- regular rate and rhythm; no murmur, no gallop. Abdomen- normal bowel sounds, soft, nontender, no distension Extremities- no pretibial edema, no erythema seen Neuro- alert, oriented x 3; PERRL, no facial palsy; no dysarthria; moves extremities Principal Diagnosis Convulsion, non-epileptic: Discharge Exam General- Not in distress. Head- atraumatic Eyes- PERRL. ENT- oropharynx clear Neck- supple, no JVD. Lungs- clear to auscultation no wheezing or crackles. Heart- regular rate and rhythm; no murmur, no gallop. Abdomen- normal bowel sounds, soft, nontender, no distension Extremities- no pretibial edema, no erythema seen Neuro- alert, oriented x 3; PERRL, no facial palsy; no dysarthria; moves extremities Discharge Data Allergies Allergy/AdvReac Type Severity Reaction Status Date / Time cephalexin Allergy Unknown Unknown Verified 02/12/25 02:42 iodine Allergy Unknown Unknown Verified 01/08/25 02:42 shellfish derived Allergy Unknown Unknown Verified 01/08/25 02:42 Consultations 01/08/25 01:06 ED Decision to Admit Stat 01/08/25 08:00 Consult Neurology Routine Consult Psychiatry Routine Ordered Studies 01/07/25 23:39 CT head/brain wo con Stat Hospital Course (1) Seizure: 24-year-old female with past medical history significant for asthma, morbid obesity, obstructive sleep apnea, not on CPAP, hypertension, seizures/pseudoseizures currently at [facility] because of depression and suicidal ideation was brought in because of possible seizure- like episode. Convulsion, non-epileptic: History of nonepileptic seizure; maintained on Lamictal 150 mg twice a day; was brought to the hospital for unresponsive episode. No bowel or bladder incontinence. No postictal confusion Patient was admitted to the hospital; no episodes of abnormal body movements during the hospitalization. She was AO X4. Evaluated by psychiatry and neurology; recommend to continue current medication Patient discharged back to the psychiatric facility Please note the above document was generated using voice recognition software. It may contain grammatical, syntax or spelling errors. Any formal questions or concerns about the content, text or information contained within the body of this dictation should be directly addressed to the provider for clarification Total Time Total Time Spent Total Time Spent (In Minutes): 45 Total Time Includes: Examination of the Patient, Discharge Planning, Medication Reconciliation, Communication With Other Providers and Other Discharge Plan Discharge Items Patient Disposition: Transfer [facility]al [facility] Fac Reason For Visit: SEIZURES Discharge Diagnosis: Nonepileptic convulsion Activity: Resume your previous activity Non-emergency contact: Primary Care Provider Call non-emergency contact if: you have any medication questions and your symptoms worsen Follow-up/Referrals: Lorena Mckoy [Primary Care Provider] - Diet: Regular Addtl Attending Provider Instructions: Your evaluated during the hospitalization by both psychiatry and neurology. They do not recommend any medication changes. Please follow-up with your primary care doctor. Pending Studies at Discharge: No Stand-Alone Forms: My [facility] Medications and DC Order Prescriptions: Continued montelukast [Singulair] 10 mg Tablet 10 mg PO HS Lamictal 150 mg 150 mg PO BID Vitamin D3 1 dose PO QAM duloxetine 30 mg 30 mg PO QAM hydroxyzine HCl 10 mg Tablet 10 mg PO HS PRN (Reason: Insomnia) metoprolol succinate 25 mg tablet extended release 24 hr 12.5 mg PO DAILY Qty: 30 0RF Discharge Orders: Discharge Order (Routine); Ordered 01/09/25 Ordered By: Inderjit Kan Admission Data Admit Date/Time: 01/08/25 04:52 Attending Provider: Inderjit Kan Admit Provider: Dany Alvarado Primary Care Provider: Lorena Mckoy Other Providers: Dany Alvarado; Francia Benedict; Vick Vasquez; Francia Brunner; Lex Neely; Nahum Nesbitt; Enrrique Mclaughlin; Vaughn Rogers; Coty Kuhn; Salvador Farnsworth; Sohan Davalos; Nirmal Kang; Gregory Iqbal; Flor Bee; Destiney Gallo; Vaughn Agudelo; Kavita Lorenz; Swetha Mtz; Lex Young; Laury Roque; Hannah Barahona; Byron Mccain; Dayami Matthew Other Interventions: Discharge Summary Assessment (RN) Last Done: 01/09/25 11:50
== END 2025-01-09 18:33 | DRG 101 ==
LOC: ED 21:03 → EDINP 01-08 04:52 → INTOOBSV 01-08 04:52 → SUATTDRO 01-08 04:52 → 1E 01-09 05:34